=== PATIENT | male | born 1935 ===

== ENCOUNTER 2021-06-09 17:40 | Emergency (ER) | payer OTHER, MEDICARE ==
[2021-06-09] MEDS ORDERED: Boostrix 0.5 ML (Tdap) VIAL ONE (18:40)
[2021-06-09] MEDS ORDERED: Lidocaine 1% w/Epinephrine 1:100K 20 ML VIAL ONE (18:47)
== END 2021-06-09 19:54 | disposition home or self-care (01) ==
LOC: MADERS 17:40
DX: S81.812A Laceration without foreign body, left lower leg, initial encounter (principal); S90.112A Contusion of left great toe without damage to nail, initial encounter; I48.91 Unspecified atrial fibrillation; Z85.830 Personal history of malignant neoplasm of bone; Z85.46 Personal history of malignant neoplasm of prostate; V89.2XXA Person injured in unspecified motor-vehicle accident, traffic, initial encounter; F17.220 Nicotine dependence, chewing tobacco, uncomplicated
CPT/HCPCS: 12002; 90471; 90715